=== PATIENT | male | born 1995 | race Caucasian/White ===

== ENCOUNTER → 2018-07-02 08:13 | Outpatient (CLI) | payer OTHER, SELFPAY ==
[2018-07-01 13:12] VITALS: BMI 32.1
[2018-07-02 08:20] LABS: Bacteria 0 SEEN /hpf (None Seen); Mucous, Urine 0 SEEN /hpf (<or=2+); Red Blood Cells-Urine 0 SEEN /hpf (0-5); Squamous Epithelial Cells - UA 0 SEEN /hpf (0-5); White Blood Cells 0 SEEN /hpf (0-5)
[2018-07-02 08:52] LABS: Color, Urine Yellow (Yellow); Glucose, Dipstick Normal (Normal); Ketone-Dipstick Negative (Negative); Leukocyte Esterase-Dipstick Negative /ul (Negative); Nitrite-Dipstick Negative (Negative); Occult Blood-Urine Negative /ul (Negative); Protein-Dipstick Negative (Negative); Urine Bilirubin Dipstick Negative (Negative); Urine Clarity Sl. Cloudy (Clear); Urine Urobilinogen Normal (Normal)
[2018-07-02 08:55] LABS: Absolute Lymphocyte Count 2.92 X10^3/ul (0.83-4.51); Absolute Neutrophil Count 3.5 X10^3/uL (2.0-7.7); Basophil# 0.07 X10^3/uL; Basophil% 0.9 % (0-1); Eosinophil# 0.71 X10^3/uL; Hematocrit 45.1 % (40-54); Hemoglobin 15.8 g/dl (13.0-16.5); Lymphocyte # 2.92 X10^3/ul (4.0); Lymphocyte % 37.1 % (19-41); Mean Corpuscular Hgb 32.2 pg (27.0-32.0); Mean Corpuscular Volume 91.9 fL (80-94); Mean Platelet Vol. 10.2 fl (6.2-12.0); Monocyte# 0.63 X10^3/uL; Neutrophil # 3.53 X10^3/uL (2.7-7.7); Neutrophil % 44.7 % (47-70); Platelet Count 274 K/mm3 (150-450); RBC Distribution Width CV 11.7 % (11.6-14.6); Red Blood Count 4.91 M/mm3 (4.6-6.2); White Blood Count 7.9 K/mm3 (4.4-11.0)
[2018-07-02 08:56] LABS: POSITIVE COUNT NO; POSITIVE DIFFERENTIAL NO; POSITIVE MORPHOLOGY NO
[2018-07-02 09:49] LABS: Anion Gap 7 (5-15); BUN 16 mg/dL (7-18); BUN/Creat Ratio 17.2 RATIO (10-20); Calcium,Total 9.1 mg/dL (8.5-10.1); Chloride 105 mmol/L (98-107); Cholesterol 151 mg/dL (200); Creatinine, Serum 0.93 mg/dL (0.70-1.30); EST Glomerular Filtration Rate 108 mL/min (>60); Est Glom Filt Rate - Afr Amer 131 mL/min (>60); Glucose 98 mg/dL (74-106); High Density Lipoprotein 33 mg/dL; Potassium 3.9 mmol/L (3.5-5.1); Sodium Level 141 mmol/L (136-145); Triglycerides 114 mg/dL; Very Low Density Lipoprotein 23 mg/dL (5-40)
== END ==
PROVIDERS: Family Provider Internal Medicine; PCP Internal Medicine; Referring Provider Internal Medicine; Visit Provider Internal Medicine
DX: I10 Essential (primary) hypertension (principal)
CPT/HCPCS: 36415; 80048; 80061; 81001; 85025

== ENCOUNTER → 2018-07-07 16:42 | Outpatient (CLI) | payer OTHER, SELFPAY ==
[2018-07-07 15:44] VITALS: BMI 32.1
[2018-07-07 17:42] LABS: T4 Total, Thyroxin 5.6 ug/dL (4.5-12.1); Thyroid Stim Hormone (TSH) 1.22 uIU/mL (0.358-3.74)
== END ==
PROVIDERS: Internal Medicine Cardiovascular Disease; Family Provider Internal Medicine; PCP Internal Medicine; Referring Provider Internal Medicine; Visit Provider Internal Medicine
DX: I10 Essential (primary) hypertension (principal)
CPT/HCPCS: 36415; 84436; 84443

== ENCOUNTER → 2018-07-29 11:33 | Outpatient (CLI) | payer OTHER, SELFPAY ==
[2018-07-07 15:44] VITALS: BMI 32.1
--- NOTE | 2018-07-29 11:35 | RDU_ITS ---
Reason For Study: HTN Right Renal Artery Left Renal Artery Right renal artery ostium 79/39 Left renal artery ostium 121/58 RSV/EDV. PSV/EDV. Right renal artery proximal 132/54 Left renal artery proximal PSV/EDV PSV/EDV. 128/43 . Right renal artery mid 120/58 Left renal artery mid 151/78 PSV/EDV. PSV/EDV . Right renal artery distal 152/65 Left renal artery distal 90/38 PSV/EDV. PSV/EDV. Right Renal Parenchyma LRA Origin 2: 136/49 cm/s Upper Pole Medula 31/15 PSV/EDV. LRA Prox 2: 135/58 cm/s Right upper pole medulla EDR 0.48 . LRA mid 2: 137/58 cm/s Right upper pole medulla R.I. LRA distal 2: 91/52 cm/s. 0.53 . Left Renal Parenchyma Upper William Cortx 20/10 PSV/EDV. Left upper pole medulla 38/20 Right upper pole cortex EDR 0.50 . PSV/EDV . Right upper pole cortex R.I. 0.50 . Left upper pole medulla EDR 0.53 . Right lower Pole medulla 24/12 Left upper pole medulla R.I. 0.47 . PSV/EDV . UP Cortex 23/12 PSV/EDV. Right lower pole medulla EDR 0.5 . Left upper pole cortex EDR 0.52 . Right lower pole medulla R.I. Left upper pole cortex R.I. 0.48 . 0.47 . Left lower Pole medulla 34/17 Lower Pole Cortex 19/9 PSV/EDV. PSV/EDV . Right lower pole cortex EDR 0.47 . Left lower pole medulla EDR 0.50 . Right lower pole cortex R.I. 0.50 . Left lower pole medulla R.I. 0.51 . Right Renal Hilar Lower Pole Cortx 29/12 PSV/EDV. Right Hilar avg 68/35 PSV/EDV. Left lower pole cortex EDR 0.41 . Right hilar acceleration time 44 Left lower pole cortex R.I. 0.60 . m/sec. Left Renal Hilar Right Renal Dimensions LT Hilar avg 83/36 PSV/EDV . Right kidney size 11.7 cm . Left hilar acceleration time 37 Right cortical dimension 1.28 cm . m/sec. Left Renal Dimensions Left kidney size 12.0 cm . Left cortical dimension 1.19 cm . Aorta Proximal abdominal aorta 1.58cm x 1.59 cm . Distal abdominal aorta 1.64cm x 1.57 cm . Proximal abdominal aorta peak systolic velocity is 177 cm/sec . Distal abdominal aorta peak systolic velocity is 144 cm/sec . Interpretation Summary <60% stenosis bilateral renal arteries Right kidney 11.7cm Left kidney 12 cm Normal aortic diameter Increased aortic velocity without visualized plague--clinical correlation would be appropriate. Ordering Physician: Ben Kelley Referring Physician: Mauro Arce Performed By: Jessica Hussein, RDCS, RVT
--- NOTE | 2018-07-29 11:35 | ECHOD_ITS ---
Reason For Study: chest pain Procedure This was a 2D Doppler, Color Flow transthoracic echocardiogram. The exam was of adequate technical quality. Exam performed in department. Left Ventricle Normal LV size. Left ventricular systolic function is normal. The estimated ejection fraction is 60 %. No evidence for diastolic dysfunction. No regional wall motion abnormalities noted. Right Ventricle Normal RV size. Normal systolic function. Atria Normal left atrium. Normal right atrium. No doppler evidence for ASD. Mitral Valve There is no mitral annular calcification. Normal mitral valve. Trivial mitral valve insufficiency. Tricuspid Valve Normal tricuspid valve. Trivial tricuspid valve insufficiency. Right ventricular systolic pressure estimated to be 29 mmHg. Aortic Valve Trisinus/trileaflet aortic valve. Normal aortic valve. Pulmonic Valve The pulmonic valve is not well visualized. Trivial pulmonic valve insufficiency. Great Vessels Normal sized aortic root. Pericardium/Pleural No pericardial effusion. MMode/2D Measurements & Calculations LVIDd: 4.7 cm IVSd: 0.98 cm Ao root diam: 3.0 cm LVIDs: 3.0 cm LVPWd: 1.0 cm RVDd: 3.8 cm FS: 36.6 % LAV(MOD-bp): 49.2 ml LA A4 area: 15.6 cm2 LA dimension(2D): 4.0 cm LAV(MOD-bp) Indexed: 22.0 ml/m2 LAV(MOD-sp2): 52.6 ml LAV(MOD-sp4): 44.0 ml RA A4 area: 13.0 cm2 Doppler Measurements & Calculations MV E max justin: 84.3 cm/sec Lat Peak E' Justin: 19.4 cm/sec Med Peak E' Justin: 12.4 cm/sec MV A max justin: 45.5 cm/sec E/E' lat: 4.3 E/E' med: 6.8 MV E/A: 1.9 Ao V2 max: 135.3 cm/sec LV V1 max: 108.3 cm/sec PA V2 max: 104.1 cm/sec Ao max P.3 mmHg LV V1 max P.7 mmHg TR max justin: 240.4 cm/sec TR max P.1 mmHg Interpretation Summary Left ventricular systolic function is normal. The estimated ejection fraction is 60 %. Trivial mitral valve insufficiency. Trivial tricuspid valve insufficiency. Trivial pulmonic valve insufficiency. Right ventricular systolic pressure estimated to be 29 mmHg. No evidence for diastolic dysfunction. Ordering Physician: Ben Kelley Referring Physician: Mauro Arce Performed By: Prerna Dunn, MARIXA, RVT
--- NOTE | 2018-07-29 16:06 | STRESSREP ---
Stress Test Report Treadmill EKG: Resting EKG: Normal sinus rhythm, normal axis, normal intervals, no evidence of previous myocardial infarction. Treadmill EKG: The patient exercised according to Paulo protocol for 12 minutes and 0 seconds achieving a maximum workload of 13.70 METS. The resting heart rate was initially 65 beats a minute and khadar to maximum 184 beats a minute which were presents 92% of the maximal age with good heart rate. Resting blood pressure was 152/94, and khadar to maximum 190/80. Test was terminated due to attainment of target heart rate and dyspnea. During exercise patient's heart rate increased as expected. Patient had rare PVCs noted. The patient had no dynamic EKG changes to suggest ischemia. Conclusions normal adequate treadmill EKG: Negative for ischemia by EKG to area. No anginal symptoms noted. Rare PVCs noted. Average exercise capacity for age. Appropriate blood pressure response to exercise. Test terminated due to attainment of target heart rate and dyspnea. No complications.
== END ==
PROVIDERS: Family Provider Internal Medicine; PCP Internal Medicine; Referring Provider Internal Medicine Cardiovascular Disease; Visit Provider Internal Medicine Cardiovascular Disease
DX: R07.9 Chest pain, unspecified (principal); I10 Essential (primary) hypertension
CPT/HCPCS: 93017; 93306; 93975

== ENCOUNTER → 2024-09-04 | Outpatient (CLI) | payer OTHER, SELFPAY ==
[2024-09-04 12:19] LABS: Absolute Lymphocyte Count 2.09 X10^3/uL (0.83-4.51); Absolute Neutrophil Count 4.1 X10^3/uL (2.0-7.7); Basophil# 0.09 X10^3/uL; Basophil% 1.2 % (0-1); Eosinophil# 0.26 X10^3/uL; Eosinophils% 3.6 % (0-5); Hematocrit 42.5 % (40-54); Hemoglobin 14.9 g/dL (13.0-16.5); Lymphocyte # 2.09 X10^3/ul (0.83-4.51); Lymphocyte % 28.6 % (19-41); Mean Corp Hgb Conc 35.1 g/dL (32-36); Mean Corpuscular Hgb 30.8 pg (27.0-32.0); Mean Corpuscular Volume 87.8 fL (80-94); Mean Platelet Vol. 10.2 fl (6.2-12.0); Monocyte# 0.73 X10^3/uL; NRBC Flagged by Analyzer 0 % (0-5); Neutrophil # 4.07 X10^3/uL (2.7-7.7); Neutrophil % 55.5 % (47-70); Platelet Count 276 K/mm3 (150-450); RBC Distribution Width CV 11.8 % (11.6-14.6); RBC Distribution Width SD 37.4 fl (35.1-43.9); Red Blood Count 4.84 M/mm3 (4.6-6.2); White Blood Count 7.3 K/mm3 (4.4-11.0)
[2024-09-04 13:16] LABS: ALB/GLOB Ratio 1.6 RATIO (0.9-2.4); AST(SGOT) 23 U/L (<=37); Alanine Aminotransfer ALT/SGPT 25 U/L (<=46); Albumin, Serum 4.7 g/dL (3.5-5.0); Alkaline Phosphatase 50 U/L (40-129); Anion Gap 12 (5-15); BUN 15 mg/dL (4-19); BUN/Creat Ratio 17.9 RATIO (10-20); Calcium,Total 9.6 mg/dL (7.6-11.0); Carbon Dioxide 24.8 mmol/L (21.0-32.0); Chloride 102 mmol/L (98-108); Cholesterol 170 mg/dL (<=200); Creatinine, Serum 0.83 mg/dL (0.70-1.20); EST Glomerular Filtration Rate 122 (>60); Globulin 2.9 g/dL (2.2-4.2); Glucose 121 mg/dL (70-99); High Density Lipoprotein 34 mg/dL; Low Density Lipoprotein Calc. 99 mg/dL; Potassium 3.8 mmol/L (3.3-5.1); Protein, Total 7.5 g/dL (5.9-8.4); Sodium Level 139 mmol/L (133-145); Total Bilirubin 0.22 mg/dL (0.00-1.30); Triglycerides 187 mg/dL; Very Low Density Lipoprotein 37 mg/dL (5-40); cholesterol:hdl ratio screen 5.03
[2024-09-05 11:45] LABS: Hemoglobin A1c 5.8 % (<=5.6)
== END | disposition home or self-care (01) ==
LOC: BFHLAB 09:13
PROVIDERS: PCP Nurse Practitioner Family; Visit Provider Nurse Practitioner Family
DX: Z00.01 Encounter for general adult medical examination with abnormal findings (principal); R73.01 Impaired fasting glucose
CPT/HCPCS: 36415; 80053; 80061; 83036; 85025